=== PATIENT | male | born 1985 | race Asian ===

== ENCOUNTER → 2019-03-23 | Outpatient (CLI) | payer BC ==
[2019-03-23 20:06] LABS: BASO # 0.1 (0.0-0.2); BASO % 0.8 % (0.0-2.0); EOS # 0.5 (0.0-0.7); GRAN # 3.9 (1.4-6.5); GRAN % 61.6 % (42.2-75.2); HEMATOCRIT 43.2 % (42.0-52.0); HEMOGLOBIN 15.2 g/dl (13.5-18.0); LYMPH # 1.4 (1.2-3.4); LYMPH % 21.6 % (20.0-51.0); MEAN CELL VOLUME 87 fl (80.0-100.0); MEAN CORPUSCULAR HEMOGLOBIN 31 pg (27.0-31.0); MEAN CORPUSCULAR HGB CONC 35 g/dl (33.0-37.0); MEAN PLATELET VOLUME 13.5 fl (7.4-10.4); MONO # 0.5 (0.1-0.6); MONO % 7.8 % (1.7-9.3); PLATELET COUNT 217 K/mm3 (130-400); RED BLOOD COUNT 4.98 M/mm3 (4.20-5.60)
[2019-03-23 20:32] LABS: ALBUMIN 4.3 gm/dL (3.5-5.0); BILIRUBIN,TOTAL 1.1 mg/dL (0.0-1.0); CALCIUM 9.5 mg/dL (8.4-10.2); CREATININE, serum 0.73 (0.66-1.25); POTASSIUM 4.3 mmol/L (3.4-5.0); TOTAL PROTEIN 7.8 gm/dL (6.4-8.2)
== END ==
LOC: ZCOL.LAB 16:29
PROVIDERS: Family Medicine
DX: Z13.0 Encounter for screening for diseases of the blood and blood-forming organs and certain disorders involving the immune mechanism (principal); Z78.9 Other specified health status; Z87.898 Personal history of other specified conditions

== ENCOUNTER → 2019-03-30 | Outpatient (CLI) | payer BC | LOC: COL.RAD 13:29 | DX: R22.2 Localized swelling, mass and lump, trunk (principal) ==

== ENCOUNTER 2021-02-26 01:42 | Observation (INO) | payer BC ==
[~2021-02-26] VITALS: Ht 165.1 cm; Wt 79.5 kg
[2021-02-26 03:23] LABS: HEMATOCRIT 40.5 % (42.0-52.0); HEMOGLOBIN 14.6 g/dl (13.5-18.0); MEAN CELL VOLUME 83 fl (80.0-100.0); MEAN CORPUSCULAR HEMOGLOBIN 30 pg (27.0-31.0); MEAN CORPUSCULAR HGB CONC 36 g/dl (33.0-37.0); MEAN PLATELET VOLUME 11.6 fl (7.4-10.4); PLATELET COUNT 199 K/mm3 (130-400); RED BLOOD COUNT 4.88 M/mm3 (4.20-5.60)
[2021-02-26 03:33] LABS: ALBUMIN 4.5 gm/dL (3.5-5.0); CALCIUM 8.6 mg/dL (8.4-10.2); CREATININE, serum 0.63 (0.66-1.25); POTASSIUM 4.1 mmol/L (3.4-5.0)
[2021-02-26 03:34] LABS: COLLECTION METHOD CLEAN CATCH
[2021-02-26 03:42] LABS: MUCOUS Present /lpf; PH 6 (5-8); SQUAMOUS EPITHELIAL None Seen /hpf; URINE APPEARANCE Cloudy; URINE BACTERIA None Seen /hpf; URINE BILIRUBIN Negative (NEGATIVE); URINE BLOOD Negative (NEGATIVE); URINE COLOR Yellow; URINE GLUCOSE 1+ (NEGATIVE); URINE KETONE Negative (NEGATIVE); URINE LEUKOCYTE ESTERASE Negative (NEGATIVE); URINE NITRATE Negative (NEGATIVE); URINE PROTEIN(semi-quant) 1+ (NEGATIVE); URINE RBC 0-2 /hpf; URINE UROBILINOGEN Negative (NEGATIVE); URINE WBC 0-2 /hpf
[2021-02-26 03:56] LABS: BAND 11 % (0-10); LYMPHOCYTE 2 % (20.0-51.0); NEUTROPHILS 83 % (42.0-75.2); PLATELET ESTIMATE NORMAL (NORMAL)
[2021-02-26 07:35] VITALS: BP 127/57; PULSE 50; TEMP 98.7
--- NOTE | 2021-02-26 08:00 | NUR ---
PATIENT IS ORIENTED BUT DROWSY THIS AM. PATIENT ARRIVED TO FLOOR IN THE EARLY HOURS OF THE MORINING. VSS. CURRENTLY DENIES ABD PAIN. NPO. IV FLUIDS STARTED AND INFUSING NS AT 125CC/HR INTO RIGHT AC IV. HEAD TO TOE ASSESSMENT WNL. PATIENT RESTING IN BED WITH LIGHTS TURNED DOWN. SURGEON NOTIFIED THIS AM OF ARRIVAL AND WILL SEE PATIENT LATER TODAY.
--- NOTE | 2021-02-26 08:52 | NUR ---
REN met with the patient to discuss discharge plan. The patient lives in [place] with his , Bon (ph#[phone]). He reports indepedence with ADLs and does not have any DME. The patient does not have a PCP. He was interested in receiving a list of the providers in [place]. REN provided him with that list. He receives his medications from [facility] and he reports no difficulties obtaining his meds. The patient does not have a DPOA-HC. The patient plans to return home with his upon discharge. No additional needs at this time. *Discharge plan: home with *
--- NOTE | 2021-02-26 10:17 | NUR ---
PATIENT GOING DOWN TO OR VIA BED. CONSENT ON CHART BUT NOT SIGNED, PATIENT HAS NOT SEEN/TALKED WITH SURGEON YET. FAMILY AT BEDSIDE. IV FLUIDS INFUSING VIA GRAVITY. PATIENT OFF FLOOR.
[2021-02-26] MEDS ORDERED: ULTRAM 50MG TAB50 MG PO (11:36)
[2021-02-26 12:15] VITALS: BP 105/55; PULSE 51; TEMP 98.6
--- NOTE | 2021-02-26 12:15 | NUR ---
PATIENT BACK IN ROOM 348 POST OP LAP APPY. NO C/O PAIN OR NAUSEA. ABD LAP SITES X3 ARE CD&I. AT BEDSIDE. CALL LIGHT IN REACH.
[2021-02-26 12:30] VITALS: BP 104/54; PULSE 73
[2021-02-26 12:45] VITALS: BP 102/51; PULSE 49
[2021-02-26 13:00] VITALS: BP 101/49; PULSE 51
[2021-02-26 13:30] VITALS: BP 103/47; PULSE 51
--- NOTE | 2021-02-26 15:45 | NUR ---
PATIENT DISCHARGING HOME VIA AMBULATORY TO PERSONAL VEHICLE WITH . GAVE DISCHARGE INSTRUCTIONS, E-SCRIPT SENT, AND F/U APT DISCUSSED. ANSWERED QUESTIONS/CONCERNS. DC'D RIGHT AC IV AND COVERED WITH GAUZE & COBAN. PATIENT DRESSED AND PERSONAL BELONGINGS PACKED. PATIENT DISCHARGED.
== END 2021-02-26 15:45 | disposition home or self-care (01) ==
LOC: COL.ER 01:42 → SURG 05:12
PROVIDERS: Emergency Medicine; ADMIT Surgery
DX: K35.80 Unspecified acute appendicitis (principal); Z79.899 Other long term (current) drug therapy
CPT/HCPCS: G0378; J0690; J1100; J1885; J2270; J2405; J2543; J2704; J3010; J7030; Q9967